=== PATIENT | female | born 1980 | race Caucasian/White ===

== ENCOUNTER 2018-03-13 16:03 | Emergency (ER) | payer SELFPAY ==
[~2018-03-13] VITALS: Wt 50.2 kg
[2018-03-13 16:07] VITALS: BP 109/66; PULSE 78; RESP 19
[2018-03-13] MEDS ORDERED: ONDANSETRON (ODT) 4 MG TAB ODT STA (17:48)
[2018-03-13] MEDS ORDERED: MECLIZINE 12.5 MG TAB PO ONE (18:00)
--- NOTE | 2018-03-13 18:41 | ERD ---
ER Documentation Chief Complaint Chief Complaint bib self, cc: dizziness for 1 month, no medical history HPI 37-year-old female presents with dizziness that she describes as feeling like th e room is spinning and is worse when she changes positions. States this is been going on for over a month. She has not tried any medications other than antibiotic eardrops because she was told she had an ear infection which may be causing her dizziness. No chest pain palpitations. No vomiting. ROS All systems reviewed and are negative except as per history of present illness. Allergies Allergies: Coded Allergies: No Known Allergy (Unverified , 03/13/18) PMhx/Soc Medical and Surgical Hx: pt denies Medical Hx, pt denies Surgical Hx Hx Alcohol Use: No Hx Substance Use: No Hx Tobacco Use: No Smoking Status: Never smoker FmHx Family History: No diabetes Physical Exam Vitals Vital Signs Date Temp Pulse Resp B/P (MAP) Pulse Ox O2 O2 Flow FiO2 Time Delivery Rate 03/13/18 98.3 78 19 109/66 100 16:07 (80) Physical Exam INITIAL VITAL SIGNS: Reviewed by me GENERAL: Awake, alert and oriented x 4, well appearing, nontoxic, speaking in full sentences. No acute distress HEAD: Atraumatic NECK: Supple. No masses. Full range of motion. No meningismus. No midline tenderness. EYES: EOMI. PERRL. EAR: No tenderness over the mastoids bilaterally. No exudates in the canals. TMs nonerythematous. RESPIRATORY: Clear to auscultation bilaterally. Symmetric chest wall rise. No wheezing or rales. No accessory muscle use. CV: Regular rate and rhythm. No murmurs, rubs, or gallops. Neuro: M/S: Alert and oriented Face: EOMI, face and pharynx with normal sensation and function Motor: Normal strength throughout Sensation: Normal sensation throughout Speech: Normal Cerebel: Normal coordination Normal gait Normal finger to nose Results 24 hrs Laboratory Tests Test 03/13/18 18:06 POC Beta HCG, Qualitative NEGATIVE Current Medications Medications Dose Sig/Annie Start Time Status Last (Trade) Ordered Route PRN Stop Time Admin Dose Reason Admin Meclizine 50 mg ONCE ONCE 03/13/18 DC 03/13/18 HCl PO 18:00 18:25 (Antivert) 03/13/18 18:01 Ondansetron 4 mg ONCE STAT 03/13/18 DC 03/13/18 HCl (Zofran ODT 17:48 18:25 Odt) 03/13/18 17:50 Procedures/MDM Patient presents with dizziness. Most likely vertigo. Neuro exam is negative. negative. Patient given meclizine and Zofran here with improvement and discharged with meclizine and Zofran. Patient counseled regarding my diagnostic impression and care plan. Prior to discharge all questions answered. Pt agrees with treatment plan and understands strict return precautions. Pt is instructed to follow up with primary care provider within 24-48 hours. Precaut ionary instructions provided including instructions to return to the ER if not improving or for any worsening or changing symptoms or concerns. Departure Diagnosis: Primary Impression: Dizziness Condition: Stable OPAL LUU PA-C Mar 13, 2018 18:41
[2018-03-13] MEDS ORDERED: MECL-77 PO (18:42)
[2018-03-13] MEDS ORDERED: ONDA4TAB14 PO (18:42)
== END 2018-03-13 18:51 | disposition home or self-care (01) ==
LOC: FTE 16:03
DX: R42 Dizziness and giddiness (principal)
CPT/HCPCS: 81025; 99283